=== PATIENT | male | born 1990 | race American Indian/Alaskan Native ===

== ENCOUNTER 2017-03-22 11:25 | Emergency (ER) | payer OTHER ==
[2017-03-22 11:37] VITALS: RESP 18; TEMP 97.8
--- NOTE | 2017-03-22 12:49 | ED PDOC ---
Arrival/HPI - General Chief Complaint: Lower Extremity Problem/Injury Time Seen by Provider: 03/22/17 11:40 Historian: Patient - History of Present Illness Narrative History of Present Illness (Text): 03/22/17 12:20 A 24 year old male, whose past medical history includes left ankle sprain, presents to the Emergency department for left ankle pain and infrapatellar knee pain. The patient reports he has been training about 6 miles everyday that prior to arrival he states his knees suddenly gave out and he hurt his left ankle and infrapatellar. The patient denies any head trauma, fever, nausea, or any other complaints at this time. Time/Duration: Prior to Arrival Symptom Onset: Sudden Symptom Course: Unchanged Quality: Aching Activities at Onset: Significant (training 6 miles ) Context: Street, Other (knees gave out while running ) Past Medical History - Provider Review Nursing Documentation Reviewed: Yes - Infectious Disease Hx of Infectious Diseases: None - Cardiac Hx Cardiac Disorders: No - Pulmonary Hx Respiratory Disorders: No - Neurological Hx Neurological Disorder: No - HEENT Hx HEENT Disorder: No - Renal Hx Renal Disorder: No - Endocrine/Metabolic Hx Endocrine Disorders: No - Hematological/Oncological Hx Blood Disorders: No - Integumentary Hx Dermatological Disorder: No - Musculoskeletal/Rheumatological Hx Musculoskeletal Disorders: Yes Other/Comment: b/l knee tendonitis - Gastrointestinal Hx Gastrointestinal Disorders: No - Genitourinary/Gynecological Hx Genitourinary Disorders: No - Psychiatric Hx Psychophysiologic Disorder: No Hx Substance Use: No Family/Social History - Physician Review Nursing Documentation Reviewed: Yes Family/Social History: No Known Family HX Smoking Status: Never Smoked Hx Alcohol Use: No Hx Substance Use: No Allergies/Home Meds Allergies/Adverse Reactions: Allergies No Known Allergies Allergy (Verified 03/22/17 11:37) Home Medications: Home Meds Medication Instructions Recorded Confirmed Celecoxib [Celebrex] 50 mg PO BID 03/22/17 03/22/17 Review of Systems - Physician Review All systems were reviewed & negative as marked: Yes - Review of Systems Constitutional: absent: Fevers, Other (head trauma ) Gastrointestinal: absent: Nausea Musculoskeletal: Other (knee pain and left ankle pain ) Physical Exam Vital Signs Reviewed: Yes Vital Signs Temp Pulse Resp BP Pulse Ox 03/22/17 13:47 97.8 F 62 18 127/84 97 03/22/17 11:36 97.8 F 60 18 122/90 99 Temperature: Afebrile Blood Pressure: Normal Pulse: Regular Respiratory Rate: Normal Appearance: Positive for: Well-Appearing, Non-Toxic, Comfortable Pain Distress: None Mental Status: Positive for: Alert and Oriented X 3 - Systems Exam Head: Present: Atraumatic, Normocephalic Pupils: Present: PERRL Extroacular Muscles: Present: EOMI Conjunctiva: Present: Normal Mouth: Present: Moist Mucous Membranes Neck: Present: Normal Range of Motion Respiratory/Chest: Present: Clear to Auscultation, Good Air Exchange. No: Respiratory Distress, Accessory Muscle Use Cardiovascular: Present: Regular Rate and Rhythm, Normal S1, S2. No: Murmurs Abdomen: Present: Normal Bowel Sounds. No: Tenderness, Distention, Peritoneal Signs Back: Present: Normal Inspection Upper Extremity: Present: Normal Inspection. No: Cyanosis, Edema Lower Extremity: Present: Other (left posterior malleolus swelling and tenderness; left infrapatellar midline tenderness ). No: Edema Neurological: Present: GCS=15, CN II-XII Intact, Speech Normal Skin: Present: Warm, Dry, Normal Color. No: Rashes Psychiatric: Present: Alert, Oriented x 3, Normal Insight, Normal Concentration Medical Decision Making ED Course and Treatment: 03/22/17 12:40 Impression: A 27 year old male with left knee pain and left ankle pain Differential Diagnosis included but are not limited to: Plan: -- Radiology: Left Ankle, Left knee, Left Tibia fibula -- Reassess and disposition Progress Notes: 03/22/17 13:18 xray negative , no aprreciable ligamentpous laxity pt. will be given a trial of NSAIDS, Knee immobilizer/ ankle bulky call wrap , R.I.C.E. directions/ orthopedic f/u prn nonimprovement x 2 weeks. 03/22/17 13:20 - RAD Interpretation Radiology Orders: 03/22/17 11:42 KNEE LEFT 2 VIEWS (AP & LAT) [RAD] Stat 03/22/17 12:54 ANKLE W/ & W/O CONTRAST LEFT [MRI] Stat 03/22/17 12:55 TIBIA FIBULA LEFT [RAD] Stat 03/22/17 13:14 ANKLE LEFT 3 VIEWS ROUTINE [RAD] Stat - Medication Orders Current Medication Orders: Discontinued Medications Ibuprofen (Motrin Tab) 800 mg PO STAT STA Stop: 03/22/17 12:56 Last Admin: 03/22/17 13:47 Dose: 800 mg - Scribe Statement The provider has reviewed the documentation as recorded by the Natalia Martinez Provider Scribe Attestation: All medical record entries made by the Scribe were at my direction and personally dictated by me. I have reviewed the chart and agree that the record accurately reflects my personal performance of the history, physical exam, medical decision making, and the department course for this patient. I have also personally directed, reviewed, and agree with the discharge instructions and disposition. Disposition/Present on Arrival - Present on Arrival Any Indicators Present on Arrival: No History of DVT/PE: No History of Uncontrolled Diabetes: No Urinary Catheter: No History of Decub. Ulcer: No History Surgical Site Infection Following: None - Disposition Have Diagnosis and Disposition been Completed?: Yes Diagnosis: Knee sprain, Ankle sprain Disposition: HOME/ ROUTINE Disposition Time: 14:22 Patient Plan: Discharge Condition: GOOD Discharge Instructions (ExitCare): Ankle Sprain (ED), Knee Sprain (ED), Knee Exercises (GEN), Ankle Exercises (GEN) Print Language: ICELANDIC Additional Instructions: rest/ice aplique/compreeesion wrap/elevate extremity trial of nasadis (w/ food) maintain splints and immobilizer orthoepdic follow up as listed if not improving in 2 weeks. Prescriptions: Ibuprofen [Motrin Tab] 600 mg PO Q6 PRN #40 tab PRN Reason: Pain, Moderate (4-7) Forms: [facility] (Persian)
[2017-03-22 13:49] VITALS: BP 127/84; PULSE 62; O2SAT 97
--- NOTE | 2017-03-22 14:26 | RAD ---
PROCEDURE: Left Knee Radiographs. Two views. HISTORY: COMPARISON: None available FINDINGS: BONES: No acute displaced fracture. JOINTS: No dislocation. JOINT EFFUSION: No significant joint effusion. OTHER FINDINGS: None. IMPRESSION: No acute displaced fracture, dislocation, or significant joint effusion identified. If symptoms persist, or if there is continued clinical concern, x-ray follow-up in 7-10 days should be considered.
--- NOTE | 2017-03-22 14:29 | RAD ---
PROCEDURE: Radiographs of the left tibia and fibula. HISTORY: s/p twist/fall injury COMPARISON: None available. TECHNIQUE: Frontal and lateral views obtained. FINDINGS: BONES: No acute displaced fracture. JOINT SPACES: No dislocation. OTHER FINDINGS: Soft tissues appear unremarkable. No evidence of radiopaque foreign body. IMPRESSION: No acute displaced fracture, dislocation, or significant joint effusion identified. If symptoms persist, or if there is continued clinical concern, x-ray follow-up in 7-10 days should be considered.
--- NOTE | 2017-03-22 14:32 | RAD ---
PROCEDURE: Left Ankle Radiographs. HISTORY: posterolateral lateral malleolar ttp COMPARISON: None FINDINGS: BONES: No acute displaced fracture. JOINTS: No dislocation. Joint space narrowing/degenerative changes noted particularly at the tibiotalar joint space. SOFT TISSUES: Unremarkable. No evidence of radiopaque foreign body. OTHER FINDINGS: None. IMPRESSION: No acute displaced fracture, dislocation, or significant joint effusion identified. If high clinical index of suspicion for occult fracture persists, suggest further evaluation with CT. Otherwise, if symptoms persist or if there is clinical concern, x-ray follow-up in 7-10 days should be considered.
== END 2017-03-22 14:51 | disposition home or self-care (01) ==
LOC: ED 11:25
DX: S83.92XA Sprain of unspecified site of left knee, initial encounter (principal); S93.402A Sprain of unspecified ligament of left ankle, initial encounter; X50.9XXA Other and unspecified overexertion or strenuous movements or postures, initial encounter; Y93.02 Activity, running; Y92.89 Other specified places as the place of occurrence of the external cause

== ENCOUNTER 2017-06-19 05:03 | Emergency (ER) | payer OTHER ==
[2017-06-19 05:27] VITALS: BMI 25.4
--- NOTE | 2017-06-19 05:33 | ED PDOC ---
Arrival/HPI - General Time Seen by Provider: 06/19/17 05:26 Historian: Patient - History of Present Illness Narrative History of Present Illness (Text): 06/19/17 05:33 Gavin Isaac is a 27 year old male who presents to the Emergency department complaining of flu-like symptoms for the past few days. Patient states he has been experiencing cough, congestion, and generalized body aches. Patient denies any fever, chills, chest pain, shortness of breath, nausea, vomiting, diarrhea, neck pain, headache, dizziness, or any other complaints. Symptom Onset: Gradual Symptom Course: Unchanged Activities at Onset: Light Context: Home Past Medical History - Provider Review Nursing Documentation Reviewed: Yes - Infectious Disease Hx of Infectious Diseases: None - Cardiac Hx Cardiac Disorders: No - Pulmonary Hx Respiratory Disorders: No - Neurological Hx Neurological Disorder: No - HEENT Hx HEENT Disorder: No - Renal Hx Renal Disorder: No - Endocrine/Metabolic Hx Endocrine Disorders: No - Hematological/Oncological Hx Blood Disorders: No - Integumentary Hx Dermatological Disorder: No - Musculoskeletal/Rheumatological Hx Musculoskeletal Disorders: Yes Other/Comment: b/l knee tendonitis - Gastrointestinal Hx Gastrointestinal Disorders: No - Genitourinary/Gynecological Hx Genitourinary Disorders: No - Psychiatric Hx Psychophysiologic Disorder: No Hx Substance Use: No Family/Social History - Physician Review Nursing Documentation Reviewed: Yes Family/Social History: Unknown Family HX Smoking Status: Never Smoked Hx Alcohol Use: No Hx Substance Use: No Allergies/Home Meds Allergies/Adverse Reactions: Allergies Penicillins Allergy (Verified 06/19/17 05:31) ANAPHYLAXIS Home Medications: Home Meds Medication Instructions Recorded Confirmed Meloxicam [Mobic] 15 mg PO DAILY 06/19/17 06/19/17 Topiramate [Topamax] 50 mg PO BID 06/19/17 06/19/17 Review of Systems - Physician Review All systems were reviewed & negative as marked: Yes - Review of Systems Constitutional: Normal. absent: Fevers Eyes: Normal ENT: Sinus Congestion, Other (+flu-like symptoms) Respiratory: Cough. absent: SOB Cardiovascular: Normal. absent: Chest Pain Gastrointestinal: Normal. absent: Abdominal Pain, Diarrhea, Nausea, Vomiting Genitourinary Male: Normal. absent: Dysuria, Frequency, Hematuria, Urinary Output Changes Musculoskeletal: Myalgias (+body aches). absent: Back Pain, Neck Pain Skin: Normal Neurological: Normal. absent: Headache, Dizziness Endocrine: Normal Hemo/Lymphatic: Normal Psychiatric: Normal Physical Exam Vital Signs Reviewed: Yes Vital Signs Temp Pulse Resp BP Pulse Ox 06/19/17 05:32 98.1 F 69 17 138/84 100 Temperature: Afebrile Blood Pressure: Normal Pulse: Regular Respiratory Rate: Normal Appearance: Positive for: Well-Appearing, Non-Toxic, Comfortable Pain Distress: None Mental Status: Positive for: Alert and Oriented X 3 - Systems Exam Head: Present: Atraumatic, Normocephalic Pupils: Present: PERRL Extroacular Muscles: Present: EOMI Conjunctiva: Present: Normal Mouth: Present: Moist Mucous Membranes Neck: Present: Normal Range of Motion Respiratory/Chest: Present: Clear to Auscultation, Good Air Exchange. No: Respiratory Distress, Accessory Muscle Use Cardiovascular: Present: Regular Rate and Rhythm, Normal S1, S2. No: Murmurs Abdomen: Present: Normal Bowel Sounds. No: Tenderness, Distention, Peritoneal Signs Back: Present: Normal Inspection Upper Extremity: Present: Normal Inspection. No: Cyanosis, Edema Lower Extremity: Present: Normal Inspection. No: Edema Neurological: Present: GCS=15, CN II-XII Intact, Speech Normal Skin: Present: Warm, Dry, Normal Color. No: Rashes Psychiatric: Present: Alert, Oriented x 3, Normal Insight, Normal Concentration Medical Decision Making ED Course and Treatment: 06/19/17 05:33 Impression: 27 year old male complaining of flu-like symptoms, cough, congestion, and body aches. Plan: -- Tamiflu -- Zithromax -- Reassess and disposition Progress Notes: On re-evaluation, patient is in no acute distress. I have discussed the results and plan with the patient, who expresses understanding. Patient in agreement with plan to be discharged home. Patient is stable for discharge. Patient was instructed to follow up with physician or return if symptoms worsen or new concerning symptoms arise. - Medication Orders Current Medication Orders: Discontinued Medications Azithromycin (Zithromax) 500 mg PO STAT STA PRN Reason: Protocol Stop: 06/19/17 05:37 Last Admin: 06/19/17 05:47 Dose: 500 mg Oseltamivir Phosphate (Tamiflu Cap) 75 mg PO STAT STA PRN Reason: Protocol Stop: 06/19/17 05:37 Last Admin: 06/19/17 05:47 Dose: 75 mg - Scribe Statement The provider has reviewed the documentation as recorded by the Sloanibmele Osborn All medical record entries made by the Sloanibmele were at my direction and personally dictated by me. I have reviewed the chart and agree that the record accurately reflects my personal performance of the history, physical exam, medical decision making, and the department course for this patient. I have also personally directed, reviewed, and agree with the discharge instructions and disposition. Disposition/Present on Arrival - Present on Arrival Any Indicators Present on Arrival: No History of DVT/PE: No History of Uncontrolled Diabetes: No Urinary Catheter: No History Surgical Site Infection Following: None - Disposition Have Diagnosis and Disposition been Completed?: Yes Diagnosis: Bronchitis Disposition: HOME/ ROUTINE Disposition Time: 05:45 Condition: GOOD Discharge Instructions (ExitCare): Acute Bronchitis Prescriptions: Oseltamivir [Tamiflu] 75 mg PO BID #14 cap Azithromycin [Zithromax] 250 mg PO DAILY #4 tab Forms: [facility] (Monegasque)
[2017-06-19 05:36] VITALS: BP 138/84; PULSE 69; RESP 17; TEMP 98.1; O2SAT 100
== END 2017-06-19 05:47 | disposition home or self-care (01) ==
LOC: ED 05:03
DX: J40 Bronchitis, not specified as acute or chronic (principal)